=== PATIENT | female | born 1945 | race Caucasian/White ===

== ENCOUNTER 2024-06-15 18:33 | Inpatient (IN) | payer MEDICARE, OTHER, SELFPAY ==
[2024-06-15] VITALS (13 sets, daily range): BP systolic 134–194; BP diastolic 57–86; PULSE 68; BMI 52.8; BMI 53.3
[2024-06-15 13:37] LABS: % Basophils 0.4 % (0-2); % Eosinophils 1.8 % (0-6); % Immature Granulocytes 0.4 % (0-0.5); % Lymphocytes 23.3 % (20.5-51.1); % Monocytes 6.4 % (1.7-9.3); % Neutrophils 67.7 % (42.2-75.2); Absolute Eosinophils 0.1 10^3/uL (0-0.7); Absolute Lymphocytes 1.7 10^3/uL (1.2-3.4); Absolute Monocytes 0.5 10^3/uL (0.1-0.6); Hematocrit 40.3 % (37.0-47.0); Hemoglobin 13.6 g/dL (12.0-16.0); Mean Corp Hgb Conc. 33.7 g/dL (33.0-37.0); Mean Corpuscular Hgb 28.8 pg (27.0-31.0); Mean Corpuscular Volume 85.4 fL (81.0-99.0); Mean Platelet Volume 10.1 fL (7.4-10.4); Nucleated Red Blood Cells % 0 %; Platelet Count 181 10^3/uL (130-400); Red Blood Cell Count 4.72 10^6/uL (4.20-5.40); Red Cell Dist. Width 14.9 % (11.5-14.5); White Blood Cell Count 7.3 10^3/uL (4.8-10.8)
[2024-06-15 13:47] LABS: ALT (SGPT) 23 U/L (0-35); AST (SGOT) 23 U/L (14-36); Albumin 4.2 g/dl (3.5-5.0); Alkaline Phosphatase 52 U/L (38-126); Blood Urea Nitrogen 21 mg/dl (7-17); Calcium 9.2 mg/dl (8.4-10.2); Carbon Dioxide 27 mmol/L (22-30); Chloride 104 mmol/L (98-107); Glucose 131 mg/dl (70-99); Sodium 140 mmol/L (135-145); Total Bilirubin 0.8 mg/dl (0.2-1.3); Total Protein 6.9 g/dl (6.3-8.2); eGFR > 60.00
--- NOTE | 2024-06-15 13:50 | ED.GENMED ---
History of Present Illness
General
Chief Complaint: Breathing Problem
Source: patient
Exam Limitations: none
Time Seen by Provider: 06/15/24 13:49
History of Present Illness
History of Present Illness:
79 yo female w h/o COPD, chronically SOB, HTN, HLD, hiatal hernia, cholecystectomy, lives alone, presents with sons who state she's here for stomach distension, 'she's puffy,' and concern she has CHF.
Took her to her Cardiology appointment earlier today, weighed 317, states weighed 303 at home in February and 314 at home yesterday. She was so short of breath at the cardiology office son decided to bring her here to ED which is closer to her
home. She never saw the recruitment manager.
Patient denies chest pain, she denies abdominal pain at this time.
Past History
Past History
ED Past Medical History: COPD, HTN, Hypercholesterolemia and NIDDM
ED Past Surgical History: Cholecystectomy
Social History
Tobacco: Former smoker
Alcohol: Occasional
Drug: None
Personal:
Living: with family
Employment: Retired
Family History
Family History: Hypertension
Review of Systems
Review of Systems
Allergies reviewed?: Yes
All Other Systems: ROS reviewed and negative except as documented in HPI and ROS
Constitutional: Denies fever
Respiratory: Reports trouble breathing; Denies cough
Cardiac: Denies chest pain
ABD/GI: Denies abdominal pain, nausea, vomiting or diarrhea
: Denies dysuria or difficulty voiding
Musculoskeletal: Reports no symptoms; Denies edema
Skin: Reports no symptoms
Neurological: Reports no symptoms
Phy Exam
Physical Exam
Physical Exam:
GENERAL: No acute distress. A&Ox3. Morbidly obese
CONSTITUTIONAL: Afebrile.
EYES: clear, conjunctivae normal
ENMT: moist mucus membranes, Pharynx nl
RESPIRATORY: Regular respirations, nonlabored, lungs clear.
CARDIOVASCULAR: Regular rate and rhythm, no murmurs, no rubs.
GI: Soft, significantly rotund, nontender, normal BS
MUSCULOSKELETAL: Well perfused. No lower extremity edema noted.
SKIN: Warm, dry, pink
PSYCH: Normal mood and affect. Well kept, interactive and appropriate
NEUROLOGIC: Awake, alert and oriented. No focal neurological deficits
Scores
Heart Failure Risk
Heart Failure Risk Score: Not Applicable
Course
Orders/Labs/Results
Orders:
Orders
06/15/24 13:12
Electrocardiogram (*1) Urgent
Reason for Study: Shortness of Breath
CXR2 [CR Chest - 2 Views ] Urgent
Comment:
Reason For Exam: sob
06/15/24 13:13
EKG- Treatment ONCE
06/15/24 13:18
Complete Blood Count/With Diff Urgent
Comprehensive Metabolic Panel Urgent
NT-proBNP Urgent
Troponin I Urgent
06/15/24 15:43
Dexamethasone Sod Phosphate [Decadron] 10 mg IV NOW STA
Ipratropium/Albuterol Sulfate [Duoneb] 3 ml INH R NOW STA
06/15/24 18:18
Furosemide [Lasix] 40 mg IV NOW STA
US Abdomen Limited Routine
Comment: liver and ascites
Reason For Exam: increased abdominal distention
06/15/24 18:20
Admit/Transfer Patient As Directed
Co-Sign Provider:
Level of Care: Inpatient admission
Assign to:: Telemetry
Physician / Group: Htay
Diagnosis: CHF
Reason for Telemetry: Acute Heart Failure
Date to Stop Telemetry: 06/18/24
Time to Stop Telemetry: 11:00
Reason for Hospitalization: IV diuretics
Expected length of stay greater than two midnights?: Yes
ELOS- Estimated Length of Stay in days: 3
I certify the patient meets the requirements for IP care: Yes
PRN Pain Medication Management As Directed
May give lesser potent ordered pain med per pt: Yes
preference::
Protocol:: Medication orders for pain may be administered in a
manner that supports deferring to patient preference
when the pt is:
- Requesting an ordered lesser potent pain medication.
Least to most potent pain medications are defined
as: acetaminophen < NSAID < tramadol < opioids
(morphine, oxycodone, hydromorphone).
- Requesting a lesser dose of the same medication IF
ORDERED.
- Requesting a less intrusive route of administration
if both routes are prescribed by the provider (PO <
IV).
06/15/24 18:22
Code Status As Directed
Resuscitation Status: Full Code
06/18/24 11:00
DC Protocol for Telemetry ONCE
Abnormal Lab Results
06/15/24
13:18
RDW 14.9 H %
(11.5-14.5)
BUN 21 H mg/dl
(7-17)
Glucose 131 H mg/dl
(70-99)
06/15/24 13:18
06/15/24 13:18
Vital Signs
Initial and Last Documented VS:
Initial Vital Signs
Temp Pulse Resp BP Pulse Ox
97.5 F 60 20 182/86 93
06/15/24 13:03 06/15/24 13:03 06/15/24 13:03 06/15/24 13:03 06/15/24 13:03
Last Documented Vital Signs
Temp Pulse Resp BP Pulse Ox
97.5 F 60 22 151/71 95
06/15/24 15:06 06/15/24 16:19 06/15/24 16:19 06/15/24 16:19 06/15/24 16:19
MDM/Problems Addressed
Differential Diagnosis Includes:
CHF, COPD exacerbation, PNA
MDM/Problems Addressed:
79 yo female w h/o COPD, chronically SOB, HTN, HLD, hiatal hernia, cholecystectomy, lives alone, presents with sons who state she's here for stomach distension, 'she's puffy,' and concern she has CHF.
Took her to her Cardiology appointment earlier today, weighed 317, states weighed 303 at home in February and 314 at home yesterday. She was so short of breath at the cardiology office son decided to bring her here to ED which is closer to her
home. She never saw the recruitment manager.
Patient denies chest pain, she denies abdominal pain at this time.
EKG: NSR.
2:30 PM:
Chest x-ray radiology report read:IMPRESSION:
No radiographic evidence of acute cardiopulmonary abnormality.
Unchanged 15 mm rounded opacity within the inferior right lung abutting the pleural surface. Additional elongated opacity more superiorly within the right lung which may also represent a focus of pleural thickening or scarring, slightly more
prominent in appearance compared to the prior study. Does 19. Scattered bibasilar scarring/atelectasis.
Mild cardiomegaly.
CBC, CMP with no clinically significant abnormality
BNP 539
Troponin WNL
No indication of heart failure. No hypoxemia
All results discussed with family in room.
Son states her CPAP was adjusted 3 months ago, he states she has follow up appts with Endocrinology, Pulmonology, Cardiology and PCP in June.
3:45 PM:
This is most likely a COPD exacerbation, offered admission to patient and family all decided that she would rather go home
She is in no acute distress, it is likely that she desaturates with activity due to her morbid obesity. Now at rest pulse ox 96% RA
Patient given a nebulizer to take home, Rx for albuterol nebulization sent to her pharmacy along with a prednisone taper.
Strict return instructions reviewed with patient and 3 sons in room.
They are all comfortable with her going home.
5:40 p.m.
After [place], pulse ox 88% RA. Does have home O2 but family now state they are not comfortable taking her home. Placed on 2 L O2 NC
Hospitalist notified of admission.
Chronic conditions affecting care: HTN and COPD
*EKG
EKG Intrepretation Date: 06/15/24
Interpretation: normal
Heart Rate: 61
Rate: normal
Rhythm: sinus
[place]: normal axis
Interval: normal interval
QRS Pattern: normal QRS
Ischemia: no ischemia
*Critical Care Note
Total Time (30-74mins, 75-104mins- exclusive of procedures): Not Applicable
ED Attending Note
-
Portions of this chart may have been created with voice recognition software.� Occasional wrong word or��sound alike� substitutions may have occurred due to the inherent limitations of voice recognition software.
Discharge Plan
Departure
Patient Disposition: Admit
Date of Disposition: 06/15/24
Time of Disposition: 14:44
Admit to: Med/Surg
Presentation/result/management discussed w/ accepting MD/DO: Hospitalist
Patient with high blood pressure during this ER visit?: No
Condition: Fair
Discharge Problem:
HARRY (dyspnea on exertion), COPD exacerbation
Interventions
Interventions:
*Risk Screen - Suicide Last Done: 06/15/24 13:03
*General Assessment Last Done: 06/15/24 15:06
*Neglect/Abuse Screening Last Done: 06/15/24 13:03
ED- Fall Risk Assessment Last Done: 06/15/24 15:06
*ED COVID-19 Vaccine History Last Done: 06/15/24 15:06
ED- Cardiac Assessment Last Done: 06/15/24 15:06
ED- Pulmonary Assessment Last Done: 06/15/24 15:06
[2024-06-15 13:57] LABS: NT-proBNP 539 pg/ml; Troponin I < 0.012 ng/ml
--- NOTE | 2024-06-15 15:03 | EDRN ---
per the providers request this RN ambulated the pt on RA with Sp02 monitor on and the pts dipped to 86% while ambulating and the pt was SOB, the pt ambulated back to the stretcher and is resting in stretcher in the lowest position, side rails up x2,
call bob within reach, HOB elevated, this RN placed the pt on 2L NC and Sp02 came up to 96%, blood pressure elevated, the provider Bere Torres HOTEL SUPERINTENDENT was notified, will continue to monitor the pt closely
[2024-06-15] MEDS: DECADRON 10 MG IV (16:03)
[2024-06-15] MEDS: DUONEB 3 ML INH (16:03)
--- NOTE | 2024-06-15 18:18 | HPS.HSE ---
Family Physician
-
Family Physician: Navarro Collado
Chief Complaint
-
Shortness of Breath
History of Present Illness
Patient is a 79 y/o female past medical history of CHF, COPD, and HTN who presents with increasing shortness of breath. Additional history is obtained from patient's son at bedside due to language barrier. He notes over the last several week
patient has been more short of breath. Today she was very short of breath on the phone prompt him to bring her to the emergency department for evaluation. Son notes increased abdominal distention over the last few week, with now increasing lower
extremity edema. He notes she has gained about 15 lbs. Son notes patient does not always take her Lasix as prescribed.
Medical History
Past Medical History
Past Medical History: Reports Other
Additional Past Medical History:
Chronic Heart Failure, unknown type
Essential Hypertension
Hyperlipidemia
COPD
GERD
Osteoporosis
Overactive Bladder
Obstructive Sleep Apnea
Class III Obesity
Past Surgical History: Reports Other
Additional Past Surgical History:
Cholecystectomy
Left Foot Surgery
Social History
Tobacco: Former Smoker (Quit about 10 years ago)
Alcohol: None
Living: Alone
Family History
Family History: Not pertinent
Allergies / Home Medications
Allergies reflects when Allergies were last updated in [facility].
Home Medications with original date entered in [facility]
Allergy/Medication List:
Allergies
Allergy/AdvReac Type Severity Reaction Status Date / Time
hydromorphone [From Dilaudid] Allergy low blood Verified 06/15/24 13:11
pressure
Home Medications
albuterol sulfate 2.5 mg/3 mL (0.083 %) solution for nebulization 2.5 mg (3 mL) inhalation QID PRN shortness of breath or wheezing #90 mL 06/15/24
alprazolam 1 mg tablet (Xanax) 1 mg PO DAILYPRN PRN anxiety 06/15/24
amlodipine 5 mg tablet (Norvasc) 5 mg PO DAILY 06/15/24
aspirin 81 mg tablet,delayed release 81 mg PO DAILY 06/15/24
baclofen 10 mg tablet 10 mg PO TIDPRN PRN spasms 06/15/24
cholecalciferol (vitamin D3) 50 mcg (2,000 unit) capsule (Vitamin D3) 50 mcg PO DAILY 06/15/24
cyanocobalamin (vitamin B-12) 1,000 mcg tablet 1,000 mcg PO DAILY 06/15/24
doxazosin 4 mg tablet 2 mg PO DAILY 06/15/24
fluticasone 250 mcg-salmeterol 50 mcg/dose blistr powdr for inhalation (Advair Diskus) 1 inh inhalation R BID 06/15/24
furosemide 40 mg tablet (Lasix) 40 mg PO DAILY 06/15/24
icosapent ethyl 1 gram capsule (Vascepa) 1 g PO DAILY 06/15/24
melatonin 10 mg tablet 10 mg PO HS 06/15/24
metoprolol tartrate 50 mg tablet (Lopressor) 50 mg PO BID 06/15/24
pantoprazole 40 mg tablet,delayed release (Protonix) 40 mg PO DAILY 06/15/24
potassium chloride 20 mEq tablet,extended release 20 meq PO DAILY 06/15/24
prednisone 10 mg tablet See Rx Instructions .Route .COMPLEX #30 tabs 06/15/24
rosuvastatin 40 mg tablet (Crestor) 40 mg PO DAILY 06/15/24
vibegron 75 mg tablet (Gemtesa) 75 mg PO DAILY 06/15/24
vitamins A,C,H-lbvi-ynmacw 2,148 mcg-113 mg-45 mg-17.4 mg tablet (PreserVision AREDS) 1 tab PO DAILY 06/15/24
Review of Systems
-
Unable to obtain full review of systems at this time due to: Language Barrier
Physical Exam
Vital Signs
Vital Signs
Temp Pulse Resp BP Pulse Ox
97.5 F 60 22 151/71 95
06/15/24 15:06 06/15/24 16:19 06/15/24 16:19 06/15/24 16:19 06/15/24 16:19
Physical Exam
General: Well Developed and Well Nourished
HEENT: Anicteric, Moist mucous membranes and Oxygen (Nasal Cannula)
Respiratory: Clear and Non Labored Respirations
Cardiac: S1/S2, Regular Rhythm and Murmur (2/6 systolic murmur)
GI: Soft, Non Tender and Distended
Rectal: Deferred by Provider
Musculoskeletal: No Clubbing, No Cyanosis and Other (Non-Pitting Edema Bilateral Lower Extremities)
Skin: Warm and Dry
Neuro: Awake, Alert, Oriented and Nonfocal/grossly intact
Psych: Calm
Laboratory Results
-
06/15/24 13:18
06/15/24 13:18
Laboratory Results
Total Bilirubin 0.8 mg/dl (0.2-1.3) 06/15/24 13:18
AST 23 U/L (14-36) 06/15/24 13:18
ALT 23 U/L (0-35) 06/15/24 13:18
Alkaline Phosphatase 52 U/L (38-126) 06/15/24 13:18
Troponin I < 0.012 ng/ml 06/15/24 13:18
Data Reviewed
-
Diagnostic Radiology: Report Reviewed by me
Lab Data: Labs Reviewed by me
Impression/Plan
-
Acute Hypoxic Respiratory Insufficiency suspect more related to acute heart failure than COPD Exacerbation
-Continue supplement oxygen
Acute on Chronic Heart Failure, unknown type
-Consult Cardiology
-Check Echo
-Check Abd US to evaluate for possible ascites
-Continue Lasix 40mg IV BID
-Monitor Is&Os and Daily
COPD
-Continue Pulmicort and DuoNeb in place of Advair
-Hold on further intravenous steroids
Essential Hypertension
-Continue amlodipine, metoprolol and doxazosin
Hyperlipidemia
-Patient maintained on Vascepa as outpatient
GERD
-Continue Protonix
Obstructive Sleep Apnea
-Continue CPAP
Class III Obesity
-Affects all aspects of care
DVT proph: Lovenox
Code Status: Full Code
--- NOTE | 2024-06-15 18:26 | W.PN.UPDATE ---
Update Note
Progress Note Update
This note serves as an addendum to the H&P by chief of staff HEMALATHA Jael YOUNG
HPI
79F former smoker who lives alone HX COPD, chronically SOB, HTN, HLD, hiatal hernia , BiB Son seeen at ER:
- evalaution for for stomach distension, 'she's puffy,' and concern she has CHF.
- At Cardiology office earlier today; Wt. 317 lbs and 314 lbs at home yesterday.
- Wt. 303 lb at home in February
- SoB at the cardiology officice , She did not seen the the mill and coal transport operator today
ROS
Patient denies chest pain, she denies abdominal pain at this time.
PHX; see above
Vital Signs
Temp Pulse Resp BP Pulse Ox
97.5 F 60 22 151/71 95
06/15/24 15:06 06/15/24 16:19 06/15/24 16:19 06/15/24 16:19 06/15/24 16:19
PE
Morbidly obese BMI 52 (wt 147 kg)
Gen: No acute distress, Well kept, interactive and appropriate
HEENT: anicteric, no pallor
Neck: supple
Lungs: nonlabored, lungs clear.
Cor: RRR, no murmurs
Abdomen: Soft, significantly rotund, nontender,
PICK REMOVER: grossly normal
MS:No lower extremity edema
Psych:Normal mood and affect.
Data
06/15/24
13:18
WBC 7.3
Hgb 13.6
Plt Count 181
BUN 21 H
Creatinine 0.9
eGFR > 60.00
Troponin I < 0.012
Kuj-X-Zwfjhqlhriq Pept 539
06/15/24 : No radiographic evidence of acute cardiopulmonary abnormality.
NO PRIOR hospitalist admission:
ASSESSMENT & PLAN
Volume overload; Wt gain , abdominal distention, b/l acute on chr [place] edema
Decompensated CHF NOS; Acute on chr Dyspnea; Pox low 90s on 2 L
Intermittently non compliance with PO lasix 40 daily
on Home O2 PRN 2 L NC
Indeterminate low pro BNP due to Class III Obesity
- ECHO in AM
- IV Lasix [address] of PO Lasix 40 daily
- cont. Metoprolol tartrate 50 BID
- Daily Wt , daily BMP
- CBC card consult
Systolic HTN suspect volume mediated
Benign HTN
- c/w RN [facility] Doxazosin , Amlodipine
- c/w IV Lasix in place of PO due to acute HF and observe BP
HX COPD
- No cough, no wheeze , clinically not convinced COPD flare
- Duo Neb
- Hold father Steroids
HLD
- cont. Rosuvastatin
HX MARILEE and compliance and tolerate with CPAP HS
- cont CPAP HS empirically 12cm H2o for now
Morbidly obese BMI 52 (wt 147 kg)
- affect all aspects of life
DVT Px: LMWH
Full code
Ip TLM
[2024-06-15] MEDS: LASIX 40 MG IV (18:57)
[2024-06-15] MEDS: DUONEB INH (21:01)
[2024-06-15] MEDS: PULMICORT INH (21:02)
[2024-06-15] MEDS: MELATONIN 9 MG PO (21:37)
[2024-06-15] MEDS: LOPRESSOR 50 MG PO (21:38)
[2024-06-16] VITALS (8 sets, daily range): BP systolic 152–208; BP diastolic 55–86; PULSE 63–68; O2SAT 95
[2024-06-16 08:17] LABS: Blood Urea Nitrogen 26 mg/dl (7-17); Calcium 9.5 mg/dl (8.4-10.2); Carbon Dioxide 28 mmol/L (22-30); Chloride 103 mmol/L (98-107); Estimated Creatinine Clearance 79 ml/min; Glucose 237 mg/dl (70-99); HDL Cholesterol 57 mg/dl; LDL Cholesterol, Calculated 76 mg/dl; Magnesium 2.1 mg/dl (1.6-2.3); Potassium 4.3 mmol/L (3.5-5.1); Sodium 141 mmol/L (135-145); Total Cholesterol 157 mg/dl (50-199); Triglyceride 121 mg/dl (10-149); Very Low Density Lipoprotein 24 mg/dl (0-30); eGFR > 60.00
[2024-06-16 08:20] LABS: Hematocrit 42.8 % (37.0-47.0); Hemoglobin 13.8 g/dL (12.0-16.0); Mean Corp Hgb Conc. 32.2 g/dL (33.0-37.0); Mean Corpuscular Hgb 28.6 pg (27.0-31.0); Mean Corpuscular Volume 88.6 fL (81.0-99.0); Mean Platelet Volume 10.2 fL (7.4-10.4); Platelet Count 192 10^3/uL (130-400); Red Blood Cell Count 4.83 10^6/uL (4.20-5.40); Red Cell Dist. Width 15.2 % (11.5-14.5); White Blood Cell Count 8.4 10^3/uL (4.8-10.8)
[2024-06-16] MEDS: DUONEB 3 ML INH ×4 (08:29→19:44)
[2024-06-16] MEDS: PULMICORT 0.5 MG INH ×2 (08:29→19:44)
[2024-06-16 08:48] LABS: TSH Reflex To Free T4 0.15 uIU/ml (0.47-4.68)
[2024-06-16] MEDS: CARDURA 2 MG PO (08:50)
[2024-06-16] MEDS: ASPIR LOW (ENTERIC COATED) 81 MG PO (08:50)
--- NOTE | 2024-06-16 08:50 | CON.CAR ---
Consultation
Consultation Request
Date/Time Consultation Requested: 06/16/2024
Date/Time Consultation Performed: 06/16/2024
Reason for Consultation: Shortness of breath
Medical History
-
Chief Complaint: Shortness of breath
History of Present Illness:
79 y/o female past medical history of CHF, COPD, and HTN who presents with increasing shortness of breath. Additional history is obtained from patient's son at bedside due to language barrier. He notes over the last several week patient has been
more short of breath.
.
On the day of presentation she was very short of breath on the phone prompt him to bring her to the emergency department for evaluation. Son notes increased abdominal distention over the last few week, with now increasing lower extremity edema. He
notes she has gained about 15 lbs. Son notes patient does not always take her Lasix as prescribe
Past Medical History
Past Medical History: CHF, COPD, GERD, HTN, Hypercholesterolemia and Other (Osteoporosis, Overactive Bladder, Obstructive Sleep Apnea, Class III Obesity)
Past Surgical History: Cholecystectomy and Orthopedic (Left foot surgery)
Social History
Tobacco: Former Smoker
Alcohol: None
Drug: None
Living: Alone
Family History
Family History: Reviewed & Not Pertinent
Allergies / Home Medications
Allergy/AdvReac Type Severity Reaction Status Date / Time
hydromorphone [From Dilaudid] Allergy low blood Verified 06/15/24 13:11
pressure
�Medication �Instructions �Recorded �Confirmed �Type
albuterol sulfate 2.5 mg/3 mL 2.5 mg (3 mL) inhalation QID PRN 06/15/24 Rx
(0.083 %) solution for nebulization shortness of breath or wheezing
#90 mL
alprazolam 1 mg tablet (Xanax) 1 mg PO DAILYPRN PRN anxiety 06/15/24 06/15/24 History
amlodipine 5 mg tablet (Norvasc) 5 mg PO DAILY 06/15/24 06/15/24 History
aspirin 81 mg tablet,delayed 81 mg PO DAILY 06/15/24 06/15/24 History
release
baclofen 10 mg tablet 10 mg PO TIDPRN PRN spasms 06/15/24 06/15/24 History
cholecalciferol (vitamin D3) 50 50 mcg PO DAILY 06/15/24 06/15/24 History
mcg (2,000 unit) capsule (Vitamin
D3)
cyanocobalamin (vitamin B-12) 1,000 mcg PO DAILY 06/15/24 06/15/24 History
1,000 mcg tablet
doxazosin 4 mg tablet 2 mg PO DAILY 06/15/24 06/15/24 History
fluticasone 250 mcg-salmeterol 50 1 inh inhalation R BID 06/15/24 06/15/24 History
mcg/dose blistr powdr for
inhalation (Advair Diskus)
furosemide 40 mg tablet (Lasix) 40 mg PO DAILY 06/15/24 06/15/24 History
icosapent ethyl 1 gram capsule 1 g PO DAILY 06/15/24 06/15/24 History
(Vascepa)
melatonin 10 mg tablet 10 mg PO HS 06/15/24 06/15/24 History
metoprolol tartrate 50 mg tablet 50 mg PO BID 06/15/24 06/15/24 History
(Lopressor)
pantoprazole 40 mg tablet,delayed 40 mg PO DAILY 06/15/24 06/15/24 History
release (Protonix)
potassium chloride 20 mEq 20 meq PO DAILY 06/15/24 06/15/24 History
tablet,extended release
prednisone 10 mg tablet See Rx Instructions .Route 06/15/24 Rx
.COMPLEX #30 tabs
rosuvastatin 40 mg tablet (Crestor) 40 mg PO DAILY 06/15/24 06/15/24 History
vibegron 75 mg tablet (Gemtesa) 75 mg PO DAILY 06/15/24 06/15/24 History
vitamins A,C,E-zjff-gcfwlh 2,148 1 tab PO DAILY 06/15/24 06/15/24 History
mcg-113 mg-45 mg-17.4 mg tablet
(PreserVision AREDS)
Review of Systems
-
All other systems: Negative unless noted
Physical Exam
Vital Signs
Temp Pulse Resp BP Pulse Ox
98.3 F 61 16 171/64 95
06/16/24 03:30 06/16/24 08:37 06/16/24 08:37 06/16/24 03:30 06/16/24 08:37
Lab Results
06/16/24 07:31
06/16/24 07:31
Troponin I < 0.012 ng/ml 06/15/24 13:18
Imj-U-Yrwgeqvhdgz Pept 539 pg/ml 06/15/24 13:18
Physical Exam
General: Well Developed and Well Nourished
HEENT: Normocephalic and Anicteric
Respiratory: Crackles and Rhonchi
Cardiac: S1/S2, Regular Rhythm and Murmur
GI: Soft, Non Tender, Non Distended and Normal Bowel Sounds
Musculoskeletal: No Clubbing, No Cyanosis and Edema
Skin: Warm and Dry
Neuro: Awake, Alert, Oriented and AO x 3
Psych: Calm
Impression / Plan
-
79-year-old woman with a history of heart failure, COPD and hypertension presented with shortness of breath likely secondary to COPD exacerbation with possibility of heart failure and cardiology is consulted for evaluation
CHF
� Patient appears to be fluid overloaded
� Unclear etiology. No prior echo is available.
� Agree with diuresis.
� Will obtain an echo today to evaluate as no prior workup is available for us to review. Any structural heart disease, valvular heart disease or any systolic dysfunction would change the management drastically.
� At this time we will continue diuresis.
COPD
� Oxygen and nebulizer treatment as per primary team.
- Steroids and antibiotics as per primary team.
Hypertension
- Continue amlodipine metoprolol and doxazosin
� With respiratory distress, blood pressure might be somewhat elevated.
- Will increase amlodipine from 5 to 10 mg once a day
Data Reviewed
-
EKG: Tracing Personally Visualized and interpreted
Radiology: Report Reviewed by me
CT Scan: Report Reviewed by me
Medical Tests (Nuc Med, Echo etc): Image Personally Visualized and interpreted
Labs: Labs Reviewed by me
Old Records: Reviewed
[2024-06-16] MEDS: KCL 20 MEQ PO (08:51)
[2024-06-16] MEDS: LOPRESSOR 50 MG PO ×2 (08:51→19:25)
[2024-06-16] MEDS: NORVASC 5 MG PO ×2 (08:51→13:02)
[2024-06-16] MEDS: CRESTOR 40 MG PO (08:51)
[2024-06-16] MEDS: LASIX 40 MG IV ×2 (08:51→15:07)
[2024-06-16] MEDS: PROTONIX 40 MG PO (08:51)
[2024-06-16 09:17] LABS: Free T4 1.24 ng/dl (0.78-2.19)
--- NOTE | 2024-06-16 11:58 | W.PN.HOSP.TC ---
Today's Communication/Plan
-
see bold
Assessment / Plan
Assessment / Plan
Gen: NAD, Awake and alert
Eyes: EOMI, PERRLA, no scleral icterus.
Neck: supple.
CV: RRR, +S1/S2, no m/r/g.
Resp: distant BS, faint rales heard in the L base
Abd: +BS, soft, NT, ND
Skin: No rashes. 2+ dependent B/L LE edema
Neuro: CN 2-12 intact, non-focal.
Psych: Normal mood and affect.
CXR: No radiographic evidence of acute cardiopulmonary abnormality. Unchanged 15 mm rounded opacity within the inferior right lung abutting the pleural surface. Additional elongated opacity more superiorly within the right lung which may also
represent a focus of pleural thickening or scarring, slightly more prominent in appearance compared to the prior study. Does 19. Scattered bibasilar scarring/atelectasis. Mild cardiomegaly.
Acute Hypoxic Respiratory Insufficiency suspect more related to acute heart failure than COPD Exacerbation
-Continue supplement oxygen
Acute on Chronic Heart Failure, unknown type
-Consult Cardiology
-Check Echo
-Check Abd US to evaluate for possible ascites
-Continue Lasix 40mg IV BID
-Monitor Is&Os and Daily
COPD
-Continue Pulmicort and DuoNeb in place of Advair
-Hold on further intravenous steroids
Essential Hypertension
-Continue amlodipine, metoprolol and doxazosin
Hyperlipidemia
-Patient maintained on Vascepa as outpatient
GERD
-Continue Protonix
Obstructive Sleep Apnea
-Continue CPAP
Morbid Obesity
-Affects all aspects of care
FULL/Lovenox
Anticipated Discharge: 24 - 48 hours
Subjective/Interval History
-
Date of Service: June 16, 2024
SOB improving.
Objective Data
-
Labs:
Laboratory Results
12/25/24
07:31
WBC 8.4
Hgb 13.8
Hct 42.8
Plt Count 192
Sodium 141
Potassium 4.3
Chloride 103
Carbon Dioxide 28
BUN 26 H
Creatinine 0.8
Glucose 237 H
Calcium 9.5
Vital Signs:
Vital Signs
Temp Pulse Resp BP Pulse Ox
98 F 68 16 175/62 93
06/16/24 10:56 06/16/24 11:15 06/16/24 11:15 06/16/24 10:56 06/16/24 11:15
I&O
06/15/24 06/16/24 06/17/24
06:59 06:59 06:59
Intake Total 360 / 360
Balance 360 / 360
--- NOTE | 2024-06-16 15:56 | CM ---
Spoke to dgtr in law. patient lives in senior citizen housing in [place] on her own. She has an aide through [place] that helps her bathe, dress, do laundry and clean. Patient uses walker. Apt set up with rails in bathroom.
She has home oxygen 2 LNC PRN.
Patient admitted with CHF.
PCP DR. Myra Garrett
PHarmacy: [facility]
PLAN: home with aide
[2024-06-16] MEDS: LOVENOX 40 MG SC (17:14)
[2024-06-16] MEDS: MELATONIN 9 MG PO (21:21)
[2024-06-17] VITALS (8 sets, daily range): BP systolic 134–167; BP diastolic 55–89; PULSE 58; BMI 52.6; BMI 52.7
[2024-06-17] MEDS: PULMICORT 0.5 MG INH (07:43)
[2024-06-17] MEDS: DUONEB 3 ML INH ×3 (07:43→15:27)
--- NOTE | 2024-06-17 07:58 | W.PN.CD ---
Today's Communication / Plan
-
lower diuretic to daily
check pending labs and monitor renal function.
monitor BP with increase in amlodipine
evaluation CXR abnormality and tx of COPD per primary team
Impression / Plan
-
79-year-old woman with a history of heart failure, COPD and hypertension presented with shortness of breath likely secondary to COPD exacerbation with possibility of heart failure and cardiology is consulted for evaluation
sob.
- question of HF on admit based on notes.
- currently on 2liters. pro BNP only 539. CXR without clear evidence of HF and without clear evidence of volume overload on exam
� echo 06/16/24 with normal LVF, mild with mean gradient 12mmHg and estimated PASP 34mmHg
tx COPD
-
COPD
� Oxygen and nebulizer treatment as per primary team.
- Steroids and antibiotics as per primary team.
mild
cxr - 15mm rounded density. as described in CXR report
Hypertension
- Continue amlodipine metoprolol and doxazosin
� With respiratory distress, blood pressure might be somewhat elevated.
- Increased amlodipine from 5 to 10 mg once a day. Monitor response
Physical Exam
Vital Signs/Labs
Vital Signs
Temp Pulse Resp BP Pulse Ox
97.4 F 57 18 163/89 96
06/17/24 03:24 06/17/24 07:46 06/17/24 07:46 06/17/24 03:24 06/17/24 07:46
06/16/24 06/17/24 06/18/24
06:59 06:59 06:59
Actual Weight 140.869 kg 139.026 kg
06/16/24 07:31
Magnesium 2.1 mg/dl (1.6-2.3) 06/16/24 07:31
Triglycerides 121 mg/dl (10-149) 06/16/24 07:31
LDL Cholesterol, Calc 76 mg/dl 06/16/24 07:31
VLDL Cholesterol, Calc 24 mg/dl (0-30) 06/16/24 07:31
HDL Cholesterol 57 mg/dl 06/16/24 07:31
Free T4 1.24 ng/dl (0.78-2.19) 06/16/24 07:31
06/15/24
13:18
The-K-Dckmmgoxeqm Pept 539
LAB Results
06/15/24
13:18
Troponin I < 0.012
Physical Exam
EENT: Anicteric
Cardiovascular: Rhythm & rate is regular
Respiratory: Respiratory effort normal
GI: Soft
Neuro/Psych: Alert
Data Reviewed
-
Date of Service: June 17, 2024
Medical Decision Making: Reviewed Test Results
X-Ray/CT/US/MRI/NUC/PET: Report Reviewed by me
Medical Tests (PFT, Pathology etc): Report Reviewed by me
Labs: Labs Reviewed by me
[2024-06-17] MEDS: CRESTOR 40 MG PO (09:07)
[2024-06-17] MEDS: ASPIR LOW (ENTERIC COATED) 81 MG PO (09:07)
[2024-06-17] MEDS: KCL 20 MEQ PO (09:07)
[2024-06-17] MEDS: CARDURA 2 MG PO (09:07)
[2024-06-17] MEDS: PROTONIX 40 MG PO (09:08)
[2024-06-17] MEDS: NORVASC 10 MG PO (09:08)
[2024-06-17] MEDS: LOPRESSOR 50 MG PO ×2 (09:08→20:33)
[2024-06-17] MEDS: LASIX 40 MG IV (09:09)
[2024-06-17 09:24] LABS: D-Dimer 0.51 ug/mlFEU (0.00-0.50)
--- NOTE | 2024-06-17 09:31 | W.PN.HOSP.TC ---
Today's Communication/Plan
-
see bold
Assessment / Plan
Assessment / Plan
Gen: NAD, Awake and alert
Eyes: EOMI, PERRLA, no scleral icterus.
Neck: supple.
CV: RRR, +S1/S2, no m/r/g.
Resp: distant BS, faint rales heard in the L base
Abd: +BS, soft, NT, ND
Skin: No rashes. 2+ dependent B/L LE edema
Neuro: CN 2-12 intact, non-focal.
Psych: Normal mood and affect.
CXR: No radiographic evidence of acute cardiopulmonary abnormality. Unchanged 15 mm rounded opacity within the inferior right lung abutting the pleural surface. Additional elongated opacity more superiorly within the right lung which may also
represent a focus of pleural thickening or scarring, slightly more prominent in appearance compared to the prior study. Does 19. Scattered bibasilar scarring/atelectasis. Mild cardiomegaly.
Echo: Normal biventricular size and systolic function without regional wall motion
abnormality.
Thickened, trileaflet aortic valve with restricted leaflet motion. Mild aortic
stenosis. Mean gradients across the aortic valve is12 mmHg.
Tricuspid valve opens normally. Trace tricuspid regurgitation. Estimated
pulmonary artery pressure of 34 mmHg.
The IVC is of normal size and demonstrates normal respiratory variation.
Acute Hypoxic Respiratory Insufficiency suspect more related to acute heart failure than COPD Exacerbation
-Continue supplement oxygen
Acute on Chronic HFpEF:
-Cardiology following
-Echo above
-Continue Lasix 40mg IV BID
-Monitor Is&Os and Daily
COPD
-Continue Pulmicort and DuoNeb in place of Advair
-Hold on further intravenous steroids
-check CT chest to further evaluate chest x-ray findings and right pleural space
Essential Hypertension
-Continue amlodipine, metoprolol and doxazosin
Hyperlipidemia
-Patient maintained on Vascepa as outpatient
GERD
-Continue Protonix
Obstructive Sleep Apnea
-Continue CPAP
Morbid Obesity
-Affects all aspects of care
FULL/Lovenox
Anticipated Discharge: 24 - 48 hours
Subjective/Interval History
-
Date of Service: June 17, 2024
Objective Data
-
Labs:
Laboratory Results
06/17/24
06:13
Sodium Pending
Potassium Pending
Chloride Pending
Carbon Dioxide Pending
BUN Pending
Creatinine Pending
Glucose Pending
Calcium Pending
Vital Signs:
Vital Signs
Temp Pulse Resp BP Pulse Ox
98.4 F 57 18 158/55 96
06/17/24 07:30 06/17/24 07:46 06/17/24 07:46 06/17/24 07:30 06/17/24 07:46
I&O
06/16/24 06/17/24 06/18/24
06:59 06:59 06:59
Intake Total 360 / 360 720 / 720
Balance 360 / 360 720 / 720
[2024-06-17 10:24] LABS: Blood Urea Nitrogen 35 mg/dl (7-17); Calcium 9.4 mg/dl (8.4-10.2); Carbon Dioxide 28 mmol/L (22-30); Chloride 100 mmol/L (98-107); Estimated Creatinine Clearance 63 ml/min; Glucose 126 mg/dl (70-99); Sodium 140 mmol/L (135-145); eGFR 56.95
[2024-06-17] MEDS: LOVENOX 40 MG SC (17:25)
--- NOTE | 2024-06-17 17:42 | W.PN.UPDATE ---
Addendum entered and electronically signed by Erik Wilson MD 06/17/24 19:21:
Potassium also placed on hold in lieu of hold on Lasix
Original Note:
Update Note
Progress Note Update
Cross Coverage Update:
Rapid response due to severe chest pain headache associated with high blood pressures 187/70.
Initially nurse had reached out to cross coverage given concern high blood pressure with associate headache. Rapid response was called when patient developed severe chest pain soon after. Son Olegario providing [place] translation. Patient in acute
distress reported 10/10 chest pain radiating straight to back. Never had pain like this before. CT chest angio was ordered stat, results pending. EKG results were discussed with cardiology leaf conditioner and no significant change was noted to prior
ekgs.
Eventually chest pain headache resolved with Tylenol nitrostat x2 and morphine 2mg x2 and vomiting (likely nausea d/t morphine, ordered zofran prn). Blood pressure since improved to systolic 160s.
Rapid response lab work largely unremarkable, mild Cr elevation 1.2 noted. Lasix for heart failure placed on hold for now. Stable respiratory status on 2L
Neg troponin, Lactic acid wnl.
Protonix switched to IV 40 mg BID, possible GERD contributing, pain was after meal, but low suspicion
Will transfer to IMU (closer monitoring) for now pending CT angio chest results
Possible Hypertensive Emergency vs Urgency
-prn IV hydralazine 5 mg ordered for SBP>170 or DBP>100
-low dose PO hydralazine 5 mg TID also started with holding parameters SBP<160 (to avoid dropping blood pressures too quickly, pt appears to be chronically elevated)
If CT chest results return positive for dissection or other acute aortic syndromes CT surgery leaf conditioner will need to be contacted and patient should be considered for transfer to CVICU vs ICU.
--- NOTE | 2024-06-17 17:45 | RR ---
A Rapid Response was called on this patient, please see Rapid Response form.
[2024-06-17] MEDS: NITROSTAT (SUBLINGUAL) 0.4 MG SL ×2 (17:51→17:56)
[2024-06-17] MEDS: MORPHINE SULFATE 2 MG IV ×2 (17:54→18:09)
[2024-06-17 17:57] LABS: Glucose - Point of Care 187 mg/dl (70-99)
[2024-06-17 18:21] LABS: % Basophils 0.2 % (0-2); % Eosinophils 0.8 % (0-6); % Immature Granulocytes 0.3 % (0-0.5); % Lymphocytes 26.4 % (20.5-51.1); % Monocytes 7.7 % (1.7-9.3); % Neutrophils 64.6 % (42.2-75.2); Absolute Eosinophils 0.1 10^3/uL (0-0.7); Absolute Lymphocytes 2.4 10^3/uL (1.2-3.4); Absolute Monocytes 0.7 10^3/uL (0.1-0.6); Absolute Neutrophils 5.8 10^3/uL (1.4-6.5); Hematocrit 37.8 % (37.0-47.0); Hemoglobin 12.7 g/dL (12.0-16.0); Mean Corp Hgb Conc. 33.6 g/dL (33.0-37.0); Mean Corpuscular Hgb 28.9 pg (27.0-31.0); Mean Corpuscular Volume 85.9 fL (81.0-99.0); Mean Platelet Volume 9.8 fL (7.4-10.4); Nucleated Red Blood Cells % 0 %; Platelet Count 178 10^3/uL (130-400); Red Cell Dist. Width 15.4 % (11.5-14.5)
[2024-06-17 18:43] LABS: Blood Urea Nitrogen 39 mg/dl (7-17); Calcium 9.7 mg/dl (8.4-10.2); Carbon Dioxide 32 mmol/L (22-30); Chloride 99 mmol/L (98-107); Estimated Creatinine Clearance 52 ml/min; Glucose 187 mg/dl (70-99); Potassium 4.3 mmol/L (3.5-5.1); Sodium 136 mmol/L (135-145); eGFR 45.76
[2024-06-17] MEDS: ZOFRAN 4 MG IV (18:44)
[2024-06-17 18:58] LABS: Troponin I < 0.012 ng/ml
--- NOTE | 2024-06-17 19:25 | PTCARENOTE ---
Called into pt's room at 733 for c/o severe headache with LT sided numbness. B/P at this time 187/70. Dr Wilson made aware of headache and elevated B/P. Soon after pt's son stated pt was having sever chest pain in the middle of her chest and around
her back. Rapid response called. Pt's B/P at 1745 174/69. Dr Wilson in the room and nitro 0.4mg SL given at 1751. Morphine 2mg IV ordered and given at 1754. Pt's B/P 143/67 at 1755. Nitro 0.4mg SL at 1756 and additional Morphine 3mg IV at 1809. Pt
taken to CT angio by the ICU nurses and returned to the floor at 1835. Pt's B/P at 1838 164/70. Dr. Wilson back into pt's room. Zofran ordered and given for pt's nausea. Report given to next shift.
[2024-06-17 20:29] LABS: INR 1.03; PT 14.1 Sec (11.4-14.6)
[2024-06-17 20:30] LABS: APTT 26.3 Sec (23.4-35.0)
[2024-06-17] MEDS: PROTONIX IV 40 MG IV (20:33)
[2024-06-17] MEDS: NSS (PRESERVATIVE FREE) 10 ML IV (20:33)
[2024-06-17] MEDS: PULMICORT INH (21:23)
[2024-06-17] MEDS: DUONEB INH (21:23)
--- NOTE | 2024-06-17 22:00 | PTCARENOTE ---
Order placed for patient to be transferred to IMU. No IMU beds available at this time. Pt denies further chest pain. CT angio results available; AFTAB Malloy notified and read results. Will keep this patient on [facility] for tonight per AFTAB Malloy.
[2024-06-17] MEDS: APRESOLINE PO (22:33)
[2024-06-17] MEDS: MELATONIN 9 MG PO (22:33)
[2024-06-18] VITALS (7 sets, daily range): BP systolic 134–167; BP diastolic 52–73; PULSE 78; BMI 52.1
[2024-06-18] MEDS: DUONEB 3 ML INH ×4 (07:17→19:17)
[2024-06-18] MEDS: PULMICORT 0.5 MG INH ×2 (07:17→19:17)
[2024-06-18] MEDS: APRESOLINE 5 MG PO ×3 (08:54→21:56)
[2024-06-18] MEDS: CRESTOR 40 MG PO (08:54)
[2024-06-18] MEDS: ASPIR LOW (ENTERIC COATED) 81 MG PO (08:57)
[2024-06-18] MEDS: LOPRESSOR 50 MG PO ×2 (08:57→21:56)
[2024-06-18] MEDS: CARDURA 2 MG PO (08:57)
[2024-06-18] MEDS: NORVASC 10 MG PO (08:58)
[2024-06-18] MEDS: NSS (PRESERVATIVE FREE) 10 ML IV ×2 (08:58→21:55)
[2024-06-18] MEDS: TYLENOL 650 MG PO (08:59)
[2024-06-18] MEDS: PROTONIX IV 40 MG IV ×2 (08:59→21:55)
--- NOTE | 2024-06-18 09:12 | W.PN.HOSP.TC ---
Today's Communication/Plan
-
see bold
Assessment / Plan
Assessment / Plan
Gen: NAD, Awake and alert
Eyes: EOMI, PERRLA, no scleral icterus.
Neck: supple.
CV: Remains RRR, +S1/S2, no m/r/g.
Resp: CTAB anteriorly
Abd: +BS, soft, NT, ND
Skin: No rashes. 1+ dependent B/L LE edema
Neuro: CN 2-12 intact, non-focal.
Psych: Normal mood and affect.
CXR: No radiographic evidence of acute cardiopulmonary abnormality. Unchanged 15 mm rounded opacity within the inferior right lung abutting the pleural surface. Additional elongated opacity more superiorly within the right lung which may also
represent a focus of pleural thickening or scarring, slightly more prominent in appearance compared to the prior study. Does 19. Scattered bibasilar scarring/atelectasis. Mild cardiomegaly.
Echo: Normal biventricular size and systolic function without regional wall motion
abnormality.
Thickened, trileaflet aortic valve with restricted leaflet motion. Mild aortic
stenosis. Mean gradients across the aortic valve is12 mmHg.
Tricuspid valve opens normally. Trace tricuspid regurgitation. Estimated
pulmonary artery pressure of 34 mmHg.
The IVC is of normal size and demonstrates normal respiratory variation.
CT chest: No acute findings within the chest. There are couple of calcified granulomas within the lungs as well as multiple calcified hilar lymph nodes compatible with prior granulomas disease. 16 mm pleural-based calcification within the anterior
right lower lobe corresponds to the rounded density seen on the prior chest radiograph. Smooth pleural thickening within the lateral right upper lobe with 2.5 cm thin-walled cyst within the lateral right upper lobe. Mild to moderate aortic valve and
coronary artery calcifications.
CTA chest: No acute pathology of the chest identified. No evidence of aortic dissection. Findings consistent with prior benign granulomatous disease. Stable. Findings consistent with mild emphysematous disease. Stable.
Acute Hypoxic Respiratory Insufficiency suspect more related to acute heart failure than COPD Exacerbation
-Continue supplement oxygen
Acute on Chronic HFpEF:
-Cardiology following
-Echo above
-Continue IV Lasix
-Monitor Is&Os and Daily
Chest pain radiating the back:
-CTA chest NEG for aortic dissection
COPD
-Continue Pulmicort and DuoNeb in place of Advair
-Hold on further intravenous steroids
-check CT chest to further evaluate chest x-ray findings and right pleural space
Essential Hypertension
-Continue amlodipine, metoprolol and doxazosin
Hyperlipidemia
-Patient maintained on Vascepa as outpatient
GERD
-Continue Protonix
Obstructive Sleep Apnea
-Continue CPAP
Morbid Obesity due to excess calories
-Affects all aspects of care
FULL/Lovenox
Anticipated Discharge: 24 - 48 hours
Subjective/Interval History
-
Date of Service: June 18, 2024
Patient was complaining of a headache.
Objective Data
-
Labs:
Laboratory Results
06/18/24
06:53
Sodium Pending
Potassium Pending
Chloride Pending
Carbon Dioxide Pending
BUN Pending
Creatinine Pending
Glucose Pending
Calcium Pending
Vital Signs:
Vital Signs
Temp Pulse Resp BP Pulse Ox
97.7 F 55 18 167/73 94
06/18/24 07:30 06/18/24 07:30 06/18/24 07:30 06/18/24 07:30 06/18/24 07:30
I&O
06/17/24 06/18/24 06/19/24
06:59 06:59 06:59
Intake Total 720 / 720 1260 / 1260
Balance 720 / 720 1260 / 1260
[2024-06-18 09:28] LABS: Blood Urea Nitrogen 32 mg/dl (7-17); Calcium 9.3 mg/dl (8.4-10.2); Carbon Dioxide 35 mmol/L (22-30); Chloride 99 mmol/L (98-107); Estimated Creatinine Clearance 57 ml/min; Glucose 122 mg/dl (70-99); Potassium 4.1 mmol/L (3.5-5.1); Sodium 140 mmol/L (135-145)
[2024-06-18 09:30] LABS: Troponin I < 0.012 ng/ml
--- NOTE | 2024-06-18 10:16 | W.PN.CD ---
Today's Communication / Plan
-
feels better today
some reproducible upper back discomfort whihc seems musculoskeletal. Some vague chest sensation but feels better today than yesterday
check follow up ECGs and troponins
can ntitrate Doxazosin for t of hypertension
( note outpatient dental assisting instructor is Dr Basim Jackson)
Impression / Plan
-
79-year-old woman with a history of heart failure, COPD and hypertension presented with shortness of breath likely secondary to COPD exacerbation with possibility of heart failure and cardiology is consulted for evaluation
chest pain and scapular paing 06/17/24
- chest CT angio without dissection. troponin negative
- symptoms improved. mild /low grade chest sensation today and some repoducible intrascapular pain with palpation which seem s musculoskeletal
- will check addtional troponins
- continue tx of GERD
- follow up ECG
sob. - improved
- question of HF on admit based on notes.
- currently on 2liters. pro BNP only 539. CXR without clear evidence of HF and without clear evidence of volume overload on exam
� echo 06/16/24 with normal LVF, mild with mean gradient 12mmHg and estimated PASP 34mmHg
tx COPD
-
COPD
� Oxygen and nebulizer treatment as per primary team.
- Steroids and antibiotics as per primary team.
mild
cxr - 15mm rounded density. as described in CXR report
Hypertension
- Continue amlodipine metoprolol and doxazosin
- Increased amlodipine from 5 to 10 mg once a day. thsi admit.
Physical Exam
Vital Signs/Labs
Vital Signs
Temp Pulse Resp BP Pulse Ox
97.7 F 55 18 167/73 94
06/18/24 07:30 06/18/24 07:30 06/18/24 07:30 06/18/24 07:30 06/18/24 07:30
06/17/24 06/18/24 06/19/24
06:59 06:59 06:59
Actual Weight 139.162 kg 137.495 kg
06/17/24 17:50
06/18/24 06:53
PT 14.1 Sec (11.4-14.6) 06/17/24 20:12
INR 1.03 06/17/24 20:12
APTT 26.3 Sec (23.4-35.0) 06/17/24 20:12
Magnesium 2.1 mg/dl (1.6-2.3) 06/16/24 07:31
Triglycerides 121 mg/dl (10-149) 06/16/24 07:31
LDL Cholesterol, Calc 76 mg/dl 06/16/24 07:31
VLDL Cholesterol, Calc 24 mg/dl (0-30) 06/16/24 07:31
HDL Cholesterol 57 mg/dl 06/16/24 07:31
Free T4 1.24 ng/dl (0.78-2.19) 06/16/24 07:31
06/15/24
13:18
Cac-E-Lelnzwrfwta Pept 539
LAB Results
06/15/24 06/17/24 06/18/24
13:18 17:50 08:55
Troponin I < 0.012 < 0.012 < 0.012
Physical Exam
Constitutional: No acute distress
Cardiovascular: Rhythm & rate is regular
Respiratory: Respiratory effort normal
GI: Soft
Neuro/Psych: Alert
Other: Other (reproducible back discomfort with papaltion of upper back . upper thoracic spine and para spinal area)
Data Reviewed
-
Date of Service: June 18, 2024
Medical Decision Making: Reviewed Test Results
X-Ray/CT/US/MRI/NUC/PET: Report Reviewed by me
Medical Tests (PFT, Pathology etc): Image Personally Visualized and interpreted
Labs: Labs Reviewed by me
[2024-06-18] MEDS: ZOFRAN 4 MG IV (11:16)
[2024-06-18] MEDS: XANAX 1 MG PO (11:16)
--- NOTE | 2024-06-18 14:34 | CM ---
Chart reviewed. Pt cont IV Lasix
Per chart, pt has aide through [facility] that assists her in the home
Currently on 1 L O2. Usually is on 2L O2 at home
PT prev recommended home PT at d/c. CM will confirm if pt is agreeable and send referral to preferred provider.
Plan: Home w/ HH if agreeable. Cont support w/ aide
--- NOTE | 2024-06-18 17:21 | PTCARENOTE ---
patient refused washing due to not feeling well, patient wanted to rest. patient request and family request to wash patient before bedtime.family and patient request will be passed on in shift report.RN notified.
[2024-06-18] MEDS: LOVENOX 40 MG SC (17:29)
[2024-06-18] MEDS: MELATONIN 9 MG PO (21:55)
[2024-06-19 03:00] VITALS: BP 132/66
[2024-06-19 03:35] VITALS: PULSE 56
[2024-06-19 06:00] VITALS: BMI 51.9
[2024-06-19 07:05] VITALS: BP 167/72
[2024-06-19] MEDS: DUONEB 3 ML INH ×2 (07:34→11:45)
[2024-06-19] MEDS: PULMICORT 0.5 MG INH (07:34)
[2024-06-19 08:29] LABS: Blood Urea Nitrogen 32 mg/dl (7-17); Calcium 9.1 mg/dl (8.4-10.2); Carbon Dioxide 32 mmol/L (22-30); Chloride 98 mmol/L (98-107); Estimated Creatinine Clearance 69 ml/min; Glucose 127 mg/dl (70-99); Potassium 4.4 mmol/L (3.5-5.1); Sodium 139 mmol/L (135-145); eGFR > 60.00
[2024-06-19] MEDS: NSS (PRESERVATIVE FREE) 10 ML IV (08:39)
[2024-06-19] MEDS: PROTONIX IV 40 MG IV (08:39)
[2024-06-19] MEDS: CRESTOR 40 MG PO (08:40)
[2024-06-19] MEDS: LOPRESSOR 50 MG PO (08:40)
[2024-06-19] MEDS: NORVASC 10 MG PO (08:40)
[2024-06-19] MEDS: ASPIR LOW (ENTERIC COATED) 81 MG PO (08:40)
[2024-06-19] MEDS: APRESOLINE 5 MG PO (08:40)
[2024-06-19] MEDS: CARDURA 2 MG PO (08:41)
[2024-06-19 11:41] VITALS: BP 142/70
[2024-06-19] MEDS: TYLENOL 650 MG PO (12:41)
--- NOTE | 2024-06-19 12:46 | W.PN.HOSP.TC ---
Today's Communication/Plan
-
d/c
Assessment / Plan
Assessment / Plan
Gen: NAD, Awake and alert
Eyes: EOMI, PERRLA, no scleral icterus.
Neck: supple.
CV: Continues to remain RRR, +S1/S2, no m/r/g.
Resp: Remains CTAB anteriorly
Abd: +BS, soft, NT, ND
Skin: No rashes.
Neuro: CN 2-12 intact, non-focal.
Psych: Normal mood and affect.
CXR: No radiographic evidence of acute cardiopulmonary abnormality. Unchanged 15 mm rounded opacity within the inferior right lung abutting the pleural surface. Additional elongated opacity more superiorly within the right lung which may also
represent a focus of pleural thickening or scarring, slightly more prominent in appearance compared to the prior study. Does 19. Scattered bibasilar scarring/atelectasis. Mild cardiomegaly.
Echo: Normal biventricular size and systolic function without regional wall motion
abnormality.
Thickened, trileaflet aortic valve with restricted leaflet motion. Mild aortic
stenosis. Mean gradients across the aortic valve is12 mmHg.
Tricuspid valve opens normally. Trace tricuspid regurgitation. Estimated
pulmonary artery pressure of 34 mmHg.
The IVC is of normal size and demonstrates normal respiratory variation.
CT chest: No acute findings within the chest. There are couple of calcified granulomas within the lungs as well as multiple calcified hilar lymph nodes compatible with prior granulomas disease. 16 mm pleural-based calcification within the anterior
right lower lobe corresponds to the rounded density seen on the prior chest radiograph. Smooth pleural thickening within the lateral right upper lobe with 2.5 cm thin-walled cyst within the lateral right upper lobe. Mild to moderate aortic valve and
coronary artery calcifications.
CTA chest: No acute pathology of the chest identified. No evidence of aortic dissection. Findings consistent with prior benign granulomatous disease. Stable. Findings consistent with mild emphysematous disease. Stable.
Acute Hypoxic Respiratory Insufficiency due to acute HFpEF:
-weaned to RA
Acute on Chronic HFpEF:
-Cardiology following
-Echo above
-was on IV lasix, now will transition to Lasix 40mg daily (discussed with Dr. Weiss)
-Monitor Is&Os and Daily
Chest pain radiating the back:
-CTA chest NEG for aortic dissection
COPD
-not in acute exac
-Continue Pulmicort and DuoNeb in place of Advair
-CT chest without acute findings
Essential Hypertension
-Continue amlodipine, metoprolol and doxazosin
Hyperlipidemia
-Patient maintained on Vascepa as outpatient
GERD
-Continue Protonix
Obstructive Sleep Apnea
-Continue CPAP
Morbid Obesity due to excess calories
-Affects all aspects of care
FULL/Lovenox
Medically cleared for d/c as per discussion with Dr. Weiss.
Total time spent on d/c = 31 min. This included today's physical exam, progress note, review of laboratory and diagnostic data, preparation of discharge documents and prescriptions, and discussions about the pt's hospital course and discharge plan
with the patient and other medical examiner involved in the patient's care.
Anticipated Discharge: Today
Subjective/Interval History
-
Date of Service: June 19, 2024
No new complaints.
Objective Data
-
Labs:
Laboratory Results
06/19/24
07:08
Sodium 139
Potassium 4.4
Chloride 98
Carbon Dioxide 32 H
BUN 32 H
Creatinine 0.9
Glucose 127 H
Calcium 9.1
Vital Signs:
Vital Signs
Temp Pulse Resp BP Pulse Ox
98.2 F 59 16 142/70 95
06/19/24 11:41 06/19/24 11:47 06/19/24 11:47 06/19/24 11:41 06/19/24 11:47
I&O
12/06/19/24 06/20/24
06:59 06:59 06:59
Intake Total 1260 / 1260 600 / 600
Balance 1260 / 1260 600 / 600
--- NOTE | 2024-06-19 13:44 | W.PN.CD ---
Addendum entered and electronically signed by Tristen Weiss MD 06/19/24 13:49:
Physical exam: General no acute distress sitting comfortably nonlabored breathing lungs are clear to auscultation distant heart sounds abdomen is soft and nontender there is no lower extremity edema she is alert and oriented moves all extremities
equally extraocular movements are intact she has moist mucous membranes.
Original Note:
Today's Communication / Plan
-
transition to daily PO lasix 40 mg
She knows to schedule hospital f/u with primary inclusion paraeducator
We will sign off please call with questions/concerns
Impression / Plan
-
79-year-old woman with a history of heart failure, COPD and hypertension presented with shortness of breath likely secondary to COPD exacerbation with possibility of heart failure and cardiology is consulted for evaluation
chest pain and scapular paing 06/17/24
- chest CT angio without dissection. troponin negative
- symptoms improved. mild /low grade chest sensation today and some repoducible intrascapular pain with palpation which seem s musculoskeletal
- will check addtional troponins
- continue tx of GERD
- follow up ECG
sob. - improved
- off oxygen
� echo 06/16/24 with normal LVF, mild with mean gradient 12mmHg and estimated PASP 34mmHg
tx COPD
- transition to daily PO lasix 40 mg
COPD
� Oxygen and nebulizer treatment as per primary team.
- Steroids and antibiotics as per primary team.
mild
cxr - 15mm rounded density. as described in CXR report
Hypertension
- Continue amlodipine metoprolol and doxazosin
- Increased amlodipine from 5 to 10 mg once a day. thsi admit.
Physical Exam
Vital Signs/Labs
Vital Signs
Temp Pulse Resp BP Pulse Ox
98.2 F 59 16 142/70 95
06/19/24 11:41 06/19/24 11:47 06/19/24 11:47 06/19/24 11:41 06/19/24 11:47
06/18/24 06/19/24 06/20/24
06:59 06:59 06:59
Actual Weight 303 lb 2 oz 302 lb 5 oz
06/17/24 17:50
06/19/24 07:08
PT 14.1 Sec (11.4-14.6) 06/17/24 20:12
INR 1.03 06/17/24 20:12
APTT 26.3 Sec (23.4-35.0) 06/17/24 20:12
Magnesium 2.1 mg/dl (1.6-2.3) 06/16/24 07:31
Triglycerides 121 mg/dl (10-149) 06/16/24 07:31
LDL Cholesterol, Calc 76 mg/dl 06/16/24 07:31
VLDL Cholesterol, Calc 24 mg/dl (0-30) 06/16/24 07:31
HDL Cholesterol 57 mg/dl 06/16/24 07:31
Free T4 1.24 ng/dl (0.78-2.19) 06/16/24 07:31
06/15/24
13:18
Lrz-G-Lwxtlhktfid Pept 539
LAB Results
06/17/24 06/18/24
17:50 08:55
Troponin I < 0.012 < 0.012
Data Reviewed
-
Date of Service: June 19, 2024
Medical Decision Making: Reviewed Test Results
EKG: Tracing Personally Visualized and interpreted (sr)
Echo: Report Reviewed by me
Labs: Labs Reviewed by me
[2024-06-19] MEDS: LASIX 40 MG PO (13:48)
--- NOTE | 2024-06-19 14:21 | CM ---
Patient seen at bedside.
Spoke with son Bryan & updated while in room with patient.
PT rec Home Health - patient declined.
IMM explained & signed. in chart.
PLAN: Home, patient declines HH
[2024-06-19] MEDS: APRESOLINE PO (15:03)
[2024-06-19 15:05] VITALS: BP 154/71
[2024-06-19] MEDS: DUONEB INH (15:28)
--- NOTE | 2024-06-19 15:35 | W.DCSUMMARY ---
Discharge Summary
Discharge Data
Date of Admission: 06/15/24
Date of Discharge: 06/19/24
-
Pending Results: No
Hospital Course
Primary diagnoses:
Acute hypoxic respiratory insufficiency due to acute on chronic heart failure with preserved ejection fraction
Secondary diagnoses:
Chronic obstructive pulmonary disease
Essential Hypertension
Hyperlipidemia
Gastroesophageal flux disease
Obstructive Sleep Apnea
Morbid Obesity due to excess calories
Consults:
Cardiology
Imaging:
CXR: No radiographic evidence of acute cardiopulmonary abnormality. Unchanged 15 mm rounded opacity within the inferior right lung abutting the pleural surface. Additional elongated opacity more superiorly within the right lung which may also
represent a focus of pleural thickening or scarring, slightly more prominent in appearance compared to the prior study. Does 19. Scattered bibasilar scarring/atelectasis. Mild cardiomegaly.
Echo: Normal biventricular size and systolic function without regional wall motion
abnormality.
Thickened, trileaflet aortic valve with restricted leaflet motion. Mild aortic
stenosis. Mean gradients across the aortic valve is12 mmHg.
Tricuspid valve opens normally. Trace tricuspid regurgitation. Estimated
pulmonary artery pressure of 34 mmHg.
The IVC is of normal size and demonstrates normal respiratory variation.
CT chest: No acute findings within the chest. There are couple of calcified granulomas within the lungs as well as multiple calcified hilar lymph nodes compatible with prior granulomas disease. 16 mm pleural-based calcification within the anterior
right lower lobe corresponds to the rounded density seen on the prior chest radiograph. Smooth pleural thickening within the lateral right upper lobe with 2.5 cm thin-walled cyst within the lateral right upper lobe. Mild to moderate aortic valve and
coronary artery calcifications.
CTA chest: No acute pathology of the chest identified. No evidence of aortic dissection. Findings consistent with prior benign granulomatous disease. Stable. Findings consistent with mild emphysematous disease. Stable.
Hospital course: 79-year-old female who presented with a chief complaint of shortness of breath as outlined in the H&P done on admission. This was due to acute on chronic heart failure with preserved ejection fraction. Imaging and echocardiogram
above. The patient was diuresed with IV Lasix. She was weaned to room air. Her symptoms improved significantly. She was transitioned to oral Lasix at the time of discharge.
Discharge Plan
-
Patient Disposition: Home (Routine Discharge)
Discharge Diagnosis/Procedures: Acute on chronic heart failure with preserved ejection fraction
Condition: Good
Diet: Other diet
Additional Diets: fluid restrict to 1400cc/day
Activity: As tolerated
Driving Restrictions: Not until seen by your Dr
Referrals:
Navarro Collado MD [Family Provider] - in less than 1 week
Prescriptions:
New
albuterol sulfate 2.5 mg /3 mL (0.083 %) solution for nebulization
2.5 mg inhalation QID PRN (Reason: shortness of breath or wheezing) Qty: 90 0RF
amlodipine 10 mg Tablet
10 mg PO DAILY Qty: 30 0RF
doxazosin 4 mg Tablet
2 mg PO DAILY Qty: 30 0RF
Continued
furosemide [Lasix] 40 mg Tablet
40 mg PO DAILY
fluticasone propion-salmeterol [Advair Diskus] 250-50 mcg/dose Blister With Device
1 inh INHALATION R BID
alprazolam [Xanax] 1 mg Tablet
1 mg PO DAILYPRN PRN (Reason: anxiety)
cyanocobalamin (vitamin B-12) 1,000 mcg Tablet
1,000 mcg PO DAILY
aspirin 81 mg Tablet,Delayed Release (Dr/Ec)
81 mg PO DAILY
baclofen 10 mg Tablet
10 mg PO TIDPRN PRN (Reason: spasms)
pantoprazole [Protonix] 40 mg Tablet,Delayed Release (Dr/Ec)
40 mg PO DAILY
metoprolol tartrate [Lopressor] 50 mg Tablet
50 mg PO BID
rosuvastatin [Crestor] 40 mg Tablet
40 mg PO DAILY
cholecalciferol (vitamin D3) [Vitamin D3] 50 mcg (2,000 unit) Capsule
50 mcg PO DAILY
PreserVision AREDS 2,148 mcg-113 mg-45 mg-17.4mg Tablet
1 tab PO DAILY
melatonin 10 mg Tablet
10 mg PO HS
icosapent ethyl [Vascepa] 1 gram Capsule
1 g PO DAILY
potassium chloride 20 mEq Tablet Extended Release
20 meq PO DAILY
Gemtesa 75 mg Tablet
75 mg PO DAILY
Discontinued
amlodipine [Norvasc] 5 mg Tablet
5 mg PO DAILY
doxazosin 4 mg Tablet
2 mg PO DAILY
Discharge Orders:
Discharge Patient (As Directed); Ordered 06/19/24
Ordered By: Estevan Licea
Discharge Date and Time
Print Language: YAKUT
== END 2024-06-19 16:47 | disposition home or self-care (01) | DRG 291 ==
LOC: 4 WEST ACU 18:33
PROVIDERS: Emergency Medicine; Internal Medicine Cardiovascular Disease; Physician Assistant Medical; ADMITTING PHYSICIAN Internal Medicine; ATTENDING PHYSICIAN Internal Medicine; EMERGENCY PHYSICIAN Student in an Organized Health Care Education/Training Program; FAMILY PHYSICIAN Internal Medicine; OTHER PHYSICIAN Internal Medicine Cardiovascular Disease
DX: I11.0 Hypertensive heart disease with heart failure (principal); I50.33 Acute on chronic diastolic (congestive) heart failure; Z68.43 Body mass index [BMI] 50.0-59.9, adult; J44.1 Chronic obstructive pulmonary disease with (acute) exacerbation; Z87.891 Personal history of nicotine dependence; E66.01 Morbid (severe) obesity due to excess calories
CPT/HCPCS: 71046; 71250; 71275; 80048; 80053; 80061; 82962; 83605; 83735; 83880; 84439; 84443; 84484; 85025; 85027; 85379; 85610; 85730; 93005; 93306; 94640; 94660; 96374; 97163; 97166; 99285; Q9967

== ENCOUNTER 2025-02-12 11:31 | Emergency (ER) | payer MEDICARE, OTHER, SELFPAY ==
[2025-02-12] VITALS (8 sets, daily range): BP systolic 137–183; BP diastolic 68–84; PULSE 60–72
[2025-02-12 11:57] LABS: Hematocrit 38.8 % (37.0-47.0); Hemoglobin 12.8 g/dL (12.0-16.0); Mean Corp Hgb Conc. 33.0 g/dL (33.0-37.0); Mean Corpuscular Volume 87.0 fL (81.0-99.0); Nucleated Red Blood Cells % 0 %; Platelet Count 192 10^3/uL (130-400); Red Cell Dist. Width 14.7 % (11.5-14.5)
[2025-02-12 12:23] LABS: ALT (SGPT) 22 U/L (0-35); AST (SGOT) 23 U/L (14-36); Albumin 4.1 g/dl (3.5-5.0); Alkaline Phosphatase 39 U/L (38-126); Blood Urea Nitrogen 13 mg/dl (7-17); Calcium 9.9 mg/dl (8.4-10.2); Carbon Dioxide 25 mmol/L (22-30); Chloride 109 mmol/L (98-107); Glucose 100 mg/dl (70-99); Potassium 4.4 mmol/L (3.5-5.1); Sodium 141 mmol/L (135-145); Total Protein 6.6 g/dl (6.3-8.2); eGFR > 60.00
[2025-02-12 12:34] LABS: Troponin I < 0.012 ng/ml
--- NOTE | 2025-02-12 15:05 | ED.GENMED ---
History of Present Illness
General
Chief Complaint: Numbness
Source: patient and family (Son at bedside)
Exam Limitations: none
Time Seen by Provider: 02/12/25 15:05
Nursing documentation reviewed up to this point in time: agreed with
History of Present Illness
History of Present Illness:
79-year-old female Czech only speaking, with history of HTN, HLD, GERD, COPD, cholecystectomy presents with son at bedside who states for past 5 days pt has been experiencing tingling in her fingertips and both feet burning, that only occur at
night. She's been having 'sweats' and dizziness whenever she moves around. Not room spinning dizziness. Mild nausea, no vomiting. Appetite decreased. PCP put her on Lexapro one week ago but stopped in 3 days later due to symptoms. Pt has been on
Ozempic for 3 months and dose increased from 0.5 to 1 mg a month ago. Pt has been unsteady on her feet due to her dizziness, no falls. Lives alone, son took her home last night to evaluate symptoms and she did have the symptoms in hands and feet
last night but not today.Dizziness has been persistent.
Past History
Past History
ED Past Medical History: COPD, HTN, Hypercholesterolemia, NIDDM and Other (morbid obesity)
ED Past Surgical History: Cholecystectomy and Orthopedic
Social History
Tobacco: Former smoker
Alcohol: Occasional
Drug: None
Personal:
Living: alone
Employment: Retired
Family History
Family History: Hypertension
Review of Systems
Review of Systems
Allergies reviewed?: Yes
All Other Systems: ROS reviewed and negative except as documented in HPI and ROS
Constitutional: Denies fever
Respiratory: Denies trouble breathing
Cardiac: Denies chest pain
ABD/GI: Reports anorexia; Denies abdominal pain, nausea, vomiting or diarrhea
: Reports dysuria and frequency
Musculoskeletal: Denies edema
Skin: Reports no symptoms
Neurological: Reports dizzy and numbness (tingling fingers, burning pain feet only at night past 5 nights. ); Denies headache or weakness
Phy Exam
Physical Exam
Physical Exam:
GENERAL: No acute distress. A&Ox3.
CONSTITUTIONAL: Afebrile.
EYES: clear, conjunctivae normal
ENMT: moist mucus membranes, Pharynx nl
RESPIRATORY: Regular respirations, nonlabored, lungs clear.
CARDIOVASCULAR: Regular rate and rhythm, no murmurs, no rubs.
GI: Morbid obesity, Soft, nontender, normal BS
MUSCULOSKELETAL: Moves with ease. Well perfused. No edema
SKIN: Warm, dry, pink
PSYCH: Normal mood and affect. Well kept, interactive and appropriate
NEUROLOGIC: Awake, alert and oriented. Speech clear. CN 2-12 intact. Finger to nose intact. Strength equal throughout. No focal neurological deficits. OOB and ambulated to BR w minimal assistance, feeling dizzy, mildly unsteady (she states because
her legs feel weak).
Course
Orders/Labs/Results
Orders:
Orders
02/12/25 11:37
ECG [Electrocardiogram (*1)] Urgent
Reason for Study: Vertigo / Dizzy
EKG- Treatment ONCE
02/12/25 11:48
Complete Blood Count/With Diff Urgent
Comprehensive Metabolic Panel Urgent
Troponin I Urgent
02/12/25 15:27
CT Head W/o Iv Contrast Urgent
Comment:
Reason For Exam: dizziness
Orthostatic VS- Treatment ONCE
02/12/25 15:28
Physical Therapy Consult [Pt Eval And Treat] Urgent
Treatment: Vestibular evaluation
Activity Level: As Tolerated
02/12/25 15:43
Urinalysis Reflex To Culture Urgent
Date Specimen was Collected: 02/12/25
Time Specimen was Collected: 15:34
Urine Microscopic Reflex Cult Urgent
Urine Culture Urgent
HOWARD Source: U
Specimen Description:
Date Specimen was Collected: 02/12/25
Time Specimen was Collected: 15:34
Abnormal Lab Results
02/12/25 02/12/25
11:48 15:43
RDW 14.7 H %
(11.5-14.5)
Lymphocytes % 20.4 L %
(20.5-51.1)
Chloride 109 H mmol/L
(98-107)
Glucose 100 H mg/dl
(70-99)
Leukocyte Esterase Rfl 1+ A
(Negative)
Urine Bacteria (Reflex) Few A
(Negative)
Urine Albumin (Reflex) 2+ A
(Neg - Trace)
02/12/25 11:48
02/12/25 11:48
Vital Signs
Initial and Last Documented VS:
Initial Vital Signs
Temp Pulse Resp BP Pulse Ox
98.5 F 70 24 166/69 94
02/12/25 11:33 02/12/25 11:33 02/12/25 11:33 02/12/25 11:33 02/12/25 11:33
Last Documented Vital Signs
Temp Pulse Resp BP Pulse Ox
98.5 F 67 20 183/73 98
02/12/25 11:33 02/12/25 19:04 02/12/25 19:04 02/12/25 19:04 02/12/25 19:04
MDM/Problems Addressed
Differential Diagnosis Includes:
Deconditioning, CVA, BPPV, UTI, depression.
MDM/Problems Addressed:
79-year-old female Czech only speaking, with history of HTN, HLD, GERD, COPD, cholecystectomy presents with son at bedside who states for past 5 days pt has been experiencing tingling in her fingertips and both feet burning, that only occur at
night. She's been having 'sweats' and dizziness whenever she moves around. Not room spinning dizziness. Mild nausea, no vomiting. Appetite decreased. PCP put her on Lexapro one week ago but stopped in 3 days later due to symptoms. Pt has been on
Ozempic for 3 months and dose increased from 0.5 to 1 mg a month ago. Pt has been unsteady on her feet due to her dizziness, no falls. Lives alone, son took her home last night to evaluate symptoms and she did have the symptoms in hands and feet
last night but not today.Dizziness has been persistent.
Son admits she has been laying around in her chair, not moving much, attributing this to her leg weakness
EKG NSR
CBC, CMP unremarkable.
Troponin normal
Orthostatics neg
174: Head CT unremarkable, radiology report read
UA with no clinically significant abnormality. WBC 6-10 urine culture pending.
Plan: Admit: Dizziness, mild ataxia, needs P/T consult, maybe MRI
Plan discussed with patient and son at bedside, patient is adamant that she will not stay. Son states he will take her home with him and observe for again and see PCP on Friday she has a walker at home she can use.
They are aware that she may be having a stroke causing her dizziness. Patient is now stating her legs feel 'fine.' And she is not dizzy.
*Pulse Oximetry
SaO2: 96
Oxygen Mode of Delivery: Room air
Patient hypoxic: no
*Critical Care Note
Total Time (30-74mins, 75-104mins- exclusive of procedures): Not Applicable
ED Attending Note
-
Portions of this chart may have been created with voice recognition software.� Occasional wrong word or��sound alike� substitutions may have occurred due to the inherent limitations of voice recognition software.
Discharge Plan
Departure
Patient Disposition: Home (Routine Discharge)
Date of Disposition: 02/12/25
Time of Disposition: 18:29
Patient with high blood pressure during this ER visit?: No
Condition: Fair
Discharge Problem:
Dizziness, Bilateral leg weakness, Physical deconditioning
Instructions: Dizziness in adults - ED (DC), Weakness - ED (DC)
Prescriptions:
No Action
furosemide [Lasix] 40 mg Tablet
40 mg PO DAILY
alprazolam [Xanax] 1 mg Tablet
1 mg PO DAILYPRN PRN (Reason: anxiety)
cyanocobalamin (vitamin B-12) 1,000 mcg Tablet
1,000 mcg PO DAILY
aspirin 81 mg Tablet,Delayed Release (Dr/Ec)
81 mg PO DAILY
baclofen 10 mg Tablet
10 mg PO TIDPRN PRN (Reason: spasms)
pantoprazole [Protonix] 40 mg Tablet,Delayed Release (Dr/Ec)
40 mg PO BID
metoprolol tartrate [Lopressor] 50 mg Tablet
50 mg PO BID
rosuvastatin [Crestor] 40 mg Tablet
40 mg PO DAILY
PreserVision AREDS 2,148 mcg-113 mg-45 mg-17.4mg Tablet
1 tab PO BID
melatonin 10 mg Tablet
10 mg PO HS
amlodipine 10 mg Tablet
10 mg PO DAILY Qty: 30 0RF
ergocalciferol (vitamin D2) [Vitamin D2] 1,250 mcg (50,000 unit) capsule
1,250 mcg PO TH
albuterol sulfate [Ventolin HFA] 90 mcg/actuation HFA aerosol inhaler
1 inh INHALATION R BID
mirabegron [Myrbetriq] 50 mg tablet extended release 24 hr
50 mg PO DAILY
Ozempic 1 mg/dose (4 mg/3 mL) pen injector
1 mg SC MO
Patient Comments:
pt and family do not know the correct dose
Referrals:
Navarro Collado MD [Family Provider, Internal Medicine] - Follow up in 2-3 days
Activity Restrictions/Additional Instructions:
As we discussed, I recommend you be admitted for MRI of brain to check for a stroke/ to be sure your dizziness is not being caused by a stroke.
Stay with your family over the weekend and see your doctor on Friday for recheck
Use your walker at all times
Return here for worse dizziness, weakness or feeling worse in any way.
Interventions
Interventions:
*Risk Screen - Suicide Last Done: 02/12/25 14:46
*General Assessment Last Done: 02/12/25 14:46
*Neglect/Abuse Screening Last Done: 02/12/25 14:46
*Nursing Disposition Last Done: 02/12/25 19:13
ED- Neurological Assessment Last Done: 02/12/25 14:46
Discharge Date and Time
Discharge Date/Time: 02/12/25 19:14
Print Language: Czech
[2025-02-12 16:04] LABS: Urine Character Clear (Clear)
[2025-02-12 16:30] LABS: Urine Red Blood Cell 0-2 /HPF (0-2)
== END 2025-02-12 19:14 | disposition home or self-care (01) ==
LOC: EMR 11:31
PROVIDERS: Emergency Medicine; Registered Nurse; EMERGENCY PHYSICIAN Emergency Medicine; FAMILY PHYSICIAN Internal Medicine
DX: R42 Dizziness and giddiness (principal); R53.1 Weakness; R20.0 Anesthesia of skin; Z60.2 Problems related to living alone; J44.9 Chronic obstructive pulmonary disease, unspecified; I10 Essential (primary) hypertension; E78.00 Pure hypercholesterolemia, unspecified; E11.9 Type 2 diabetes mellitus without complications; Z87.891 Personal history of nicotine dependence; Z90.49 Acquired absence of other specified parts of digestive tract
CPT/HCPCS: 99284; 70450; 80053; 81003; 81015; 84484; 85025; 87086; 93005